=== PATIENT | female | born 1990 | race Caucasian/White ===

== ENCOUNTER 2022-05-14 20:00 | Outpatient (CLI) | payer BC, SELFPAY | END 2022-05-14 20:01 | disposition home or self-care (01) | LOC: LKVREF 05-22 09:03 | PROVIDERS: Visit Provider Nurse Practitioner Family | DX: Z01.419 Encounter for gynecological examination (general) (routine) without abnormal findings (principal); N89.8 Other specified noninflammatory disorders of vagina; N76.0 Acute vaginitis | CPT/HCPCS: 87491; 87591 ==

== ENCOUNTER 2024-11-05 09:23 | Outpatient (CLI) | payer BC, SELFPAY | END 2024-11-05 09:24 | disposition home or self-care (01) | LOC: NFLDREF 11-06 02:24 | PROVIDERS: Visit Provider Nurse Practitioner Family | DX: N30.00 Acute cystitis without hematuria (principal) | CPT/HCPCS: 87086 ==